=== PATIENT | male | born 1970 | race Caucasian/White ===

== ENCOUNTER 2021-01-17 16:49 | Emergency (ER) | payer MEDICAID, OTHER, SELFPAY ==
[2021-01-17 16:52] VITALS: BP 147/92; PULSE 97; RESP 18; TEMP 37; O2SAT 98; BMI 28.3
[2021-01-17 19:00] VITALS: BP 153/97; PULSE 85; RESP 16; TEMP 36.6; O2SAT 100
--- NOTE | 2021-01-17 19:15 | ED.FEVER ---
HPI - Fever General Chief Complaint: Fever Stated Complaint: flu like Time Seen by Provider: 01/17/21 20:31 Source: patient Mode of arrival: ambulatory Limitations: no limitations History of Present Illness HPI Narrative: 50-year-old male presents with upper respiratory symptoms consistent with COVID-19. Has been feeling ill for the past 4 days, and did receive his COVID vaccine. He does not report any other concerning symptoms. He is requesting COVID-19 testing. MD elicited complaint: fever Onset (ago): day(s) (4) Context: sick contacts Relieving factors: nothing Associated symptoms: headache, rhinorrhea, nasal congestion, sore throat and cough Treatments prior to arrival fever: acetaminophen Related Data Allergies Allergy/AdvReac Type Severity Reaction Status Date / Time No Known Allergies Allergy Unverified 03/05/20 19:36 [No Known Allergies*] Review of Systems Review of Systems: Constitutional: Positive Fever, positive Chills ENT/Mouth: No Ear Pain, No Hoarseness, positive sore throat Eyes: No Eye Pain, No Swelling, No Redness, No Foreign Body Cardiovascular: No Chest Pain, No SOB Respiratory: No Cough, No Dyspnea Gastrointestinal: No Nausea, No Vomiting, No Diarrhea, No abdominal Pain Genitourinary: No Dysuria, No Hematuria Musculoskeletal: No joint pain, positive Myalgias, No Joint Swelling Skin: No Skin lacerations, No rash Neuro: No Weakness, No Numbness, No Paresthesias, No Loss of Consciousness, No Dizziness, No Headache Psych: No Anxiety/Panic, No Depression Heme/Lymph: no easy bruising, no Lymphadenopathy Endocrine: No Polyuria, No Polydipsia Yes all other systems are reviewed and are negative [facility] Past Medical History Attestation statement: The following information was validated with the patient. Source: old records reviewed Medical History (Updated 01/17/21 @ 21:51 by Rosemarie Rodríguez NP) No acute medical problems Surgical History No history of previous surgery Social History Social History Advance Directives: No Advance Directives Information Provided: No Physical Exam Vital Signs: Vital Signs: Last Vital Signs Temp 97.8 F 01/17/21 19:00 Pulse 85 01/17/21 19:00 Resp 16 01/17/21 19:00 BP 153/97 H 01/17/21 19:00 Pulse Ox 100 01/17/21 19:00 Body Mass Index 28.3 Appearance: Alert. Oriented X3. No acute distress. Eyes: Pupils equal, round and reactive to light. ENT: Pharynx normal. Moist mucous membranes Neck: Normal inspection. Neck supple. CVS: Normal heart rate and rhythm. Pulses normal. Respiratory: No respiratory distress. Breath sounds normal. Abdomen: Soft and nontender. Skin: Skin warm and dry. Normal skin color. Normal skin turgor. Extremities: No lower extremity edema. Neuro: No motor deficit. No sensory deficit. Cranial nerves 2-12 intact. No focal neural deficits. Course Course Course Narrative: 50-year-old male presents with upper respiratory symptoms. Requesting COVID-19 testing. Patient is afebrile, appears nontoxic, even unlabored respirations, speaking complete sentences. Lung sounds clear to auscultation all lobes. COVID test is negative. Plan of care is to discharge home with supportive measures. MDM - Fever Differential Diagnosis Differential diagnosis: Likely viral infection and influenza Medical Records Attestation: I reviewed the patient's medical records. Lab Data Attestation: I reviewed the patient's lab results. Labs: Lab Results 01/17/21 Range/Units 19:31 Coronavirus (PCR) NEGATIVE (Negative) Influenza Type A (PCR) NEGATIVE (Negative) Influenza Type B (PCR) NEGATIVE (Negative) RSV RNA Qual (PCR) NEGATIVE (Negative) Discharge Plan Discharge Clinical Impression: Viral infection Patient Disposition: Home, Self-Care Instructions: Viral Syndrome (ED) Additional Instructions: You were evaluated for upper respiratory viral symptoms. Your COVID test, influenza and RSV test are negative. Please continue to use supportive measures. You can use Mucinex, Tylenol and Motrin as needed to help with your symptoms. Drink plenty of fluids. Follow-up with primary care provider in the next few days. Thank you for choosing this emergency department for evaluation. Please follow-up with primary care physician as needed. Return to the emergency department for any new, concerning, or worsening symptoms. Stand Alone Forms: Work/School Release Interventions: ED Discharge Assessment Last Done: 01/17/21 22:07 Discharge Date/Time: 01/17/21 22:17
[2021-01-17 20:44] LABS: Influenza A PCR NEGATIVE (Negative); Influenza B PCR NEGATIVE (Negative); Resp Syncy Virus RNA Qual PCR NEGATIVE (Negative); SARS COV2 PCR INHOUSE NEGATIVE (Negative)
== END 2021-01-17 22:17 | disposition home or self-care (01) ==
PROVIDERS: Nurse Practitioner Family; Emergency Provider Internal Medicine; PCP Internal Medicine
DX: B34.9 Viral infection, unspecified (principal); R50.9 Fever, unspecified; Z20.822 Contact with and (suspected) exposure to COVID-19
CPT/HCPCS: 0241U; 36415; 99283

== ENCOUNTER 2021-07-16 05:46 | Emergency (ER) | payer MEDICAID, OTHER, SELFPAY ==
--- NOTE | ~2021-07-16 | CT_ITS ---
EXAMINATION: CT ABDOMEN AND PELVIS WITHOUT CONTRAST CLINICAL INFORMATION: Left flank pain, history of renal stone COMPARISON: CT abdomen and pelvis 07/11/2018 TECHNIQUE: Multidetector volumetric imaging was performed from the superior aspect of the liver through the pubic symphysis. Sagittal and coronal reformatted images were obtained on the technologist's workstation. This CT examination was performed using dose optimization techniques as appropriate, variously including the following: *Automated exposure control *Adjustment of mA and/or kV according to patient size (this includes techniques or standardized protocols for targeted exams where dose is matched to indication/reason for exam; i.e. extremities or head) *Use of iterative reconstruction technique DLP: 495 mGy-cm FINDINGS: LUNG BASES: The visualized lung bases are unremarkable. LIVER, GALLBLADDER, AND BILIARY TREE: The liver is normal in size, shape, and attenuation. No focal hepatic lesion or biliary ductal dilatation is present. The gallbladder is unremarkable with no evidence of radiopaque gallstones, gallbladder wall thickening, or obvious pericholecystic inflammatory changes. PANCREAS: Unremarkable. SPLEEN: Unremarkable. ADRENAL GLANDS: Unremarkable. KIDNEYS AND URETERS: There is mild left-sided hydroureteronephrosis with an obstructing 4.5 cm calculus in the distal ureter (6, 57/83 and 3, 76/94). Moderate left-sided perinephric stranding. Punctate nonobstructing calculus in the lower pole of the right kidney. BLADDER: Partially decompressed bladder. No bladder calculi. GASTROINTESTINAL TRACT: The small and large bowel are unremarkable. The appendix is unremarkable. ABDOMINAL WALL: Left fat-containing inguinal hernia. LYMPH NODES: Normal. VASCULAR: Unremarkable. PELVIC VISCERA: The prostate and seminal vesicles are unremarkable. OSSEOUS STRUCTURES: Mild degenerative disc disease in the lumbar spine. CT/CT abdomen pelvis wo con IMPRESSION: 4.5 mm obstructing calculus in the distal left ureter. Mild left-sided hydroureteronephrosis with moderate perinephric stranding. Additional punctate nonobstructing calculus in the lower pole the right kidney. Fleischner guidelines were followed.
[2021-07-16 06:03] VITALS: BP 173/108; PULSE 66; RESP 16; TEMP 37.2; O2SAT 100; BMI 27.3
--- NOTE | 2021-07-16 06:36 | ED_ITS ---
HPI - Male Genitourinary General Chief complaint: Urogenital-Male Stated complaint: lower back pain; kidney stones? Time Seen by Provider: 07/16/21 06:10 Source: patient Mode of arrival: ambulatory Limitations: no limitations History of Present Illness HPI Narrative: left flank pain for past few days, he feels like he has a kidney stone. He last had a stone a few years ago. He has nausea and vomiting. Denies fever or chills. Denies dysuria, frequency or hematuria. Onset (ago): day(s) Duration: constant Related Data Previous Rx's Medication Instructions Recorded naproxen 500 mg tablet (Naprosyn) 500 mg PO BID #20 tab 07/16/21 oxycodone-acetaminophen 5 mg-325 1 tab PO Q8H PRN #10 tab 07/16/21 mg tablet (Percocet) prednisone 20 mg tablet 20 mg PO DAILY #5 tab 07/16/21 tamsulosin 0.4 mg capsule (Flomax) 0.4 mg PO BEDTIME #10 cap 07/16/21 Allergies Allergy/AdvReac Type Severity Reaction Status Date / Time No Known Allergies Allergy Unverified 03/05/20 19:36 [No Known Allergies*] Review of Systems Verdana 4l Constitutional: Verdana 4d Constitutional: Verdana 4d Verdana 4d Reports no additional constitutional complaints Verdana 4l Eyes: Verdana 4d Verdana 4d Eyes: Verdana 4d Reports no additional eye complaints Verdana 4l ENT: Verdana 4d Denies dizziness Verdana 4l Cardiovascular: Verdana 4d Cardiovascular: Verdana 4d Verdana 4d Reports no additional cardiovascular complaints Verdana 4l Respiratory: Verdana 4d Verdana 4d Respiratory: Verdana 4d Reports as per HPI Verdana 4l Gastrointestinal: Verdana 4d Gastrointestinal: Verdana 4d Verdana 4d Reports no additional gastrointestinal complaints Verdana 4l Musculoskeletal: Verdana 4d Musculoskeletal: Verdana 4d Verdana 4d Reports no additional musculoskeletal complaints Verdana 4l Integumentary/Breasts: Verdana 4d Skin/Breast: Verdana 4d Verdana 4d Denies rash Verdana 4l Neurologic: Verdana 4d Reports system reviewed and no additional complaints, except as documented, Denies dizziness and Denies Sensory deficit (Neuro) Verdana 4l Psychiatric: Verdana 4d Verdana 4d Psychiatric: Verdana 4d Denies anxiety [facility] Past Medical History Medical History No acute medical problems Surgical History No history of previous surgery Social History Social History Advance Directives: No Advance Directives Information Provided: No Physical Exam Verdana 4l Vital Signs: Verdana 4d Verdana 4d Vital Signs: Verdana 4d Verdana 4Bd Last Vital Signs Verdana 4d Leather Stretcher New 4d Leather Stretcher New 4d Temp 97.6 F 07/16/21 08:16 Leather Stretcher New 4d Pulse 63 07/16/21 08:16 Leather Stretcher New 4d Resp 14 07/16/21 08:16 BP 150/94 H 07/16/21 08:16 Pulse Ox 99 07/16/21 08:16 BMI result Body Mass Index 27.3 Const: General: healthy appearing Nutritional Appearance: average body habitus Orientation/consciousness: oriented to person and patient oriented x3 Limitations: no limitations HENMT: Head: Yes normal to inspection Ears: external ears normal General nose exam: Normal external nose present Mouth: Normal oral and palatal mucosa present and oropharynx normal Throat: Yes posterior oropharynx normal Eyes: General: appearance normal, both eyes and all related structures Neck: Other: supple Neck: Yes normal visual inspection Chest: Chest palpation & inspection: normal inspection of the chest Resp: Auscultation: clear to auscultation bilaterally Cardio: Jugular venous distension: no JVD Rate: regular rate Rhythm: regular rhythm Heart sounds: S1 normal heart sound present and S2 normal heart sound present GI: Inspection: Yes normal to inspection Palpation (GI): Soft to palpation, nontender and No hepatosplenomegaly present Auscultation: normal bowel sounds : Other: Left CVAT pain with percussion. Skin: General skin exam: no rashes or lesions noted Neuro: General: oriented to person and patient oriented x3 Cranial nerves: Yes CN's II-XII intact bilaterally Motor exam (neuro): 5/5 motor strength present throughout Sensory Exam: No Sensory deficit (Neuro) Extrem: General: Yes normal to inspection Psych: Appearance: grossly normal Course Reevaluation(s) Reevaluation #1: Patient still having pain but feels slightly better. The stone is at the UVJ and about to pass Time: 10:02 [facility] - Male Genitourinary Lab Data Result diagrams: 07/16/21 07:08 07/16/21 07:08 Labs: Lab Results 07/16/21 07/16/21 07/16/21 Range/Units 07:08 07:08 07:09 WBC 5.7 (4.8-10.8) X10*3/uL RBC 5.15 (4.60-5.80) X10*6/uL Hgb 15.1 (14.0-18.0) g/dl Hct 43.8 (42.0-52.0) % MCV 85.0 (80.0-98.0) fL MCH 29.3 (27.0-33.0) pg MCHC 34.5 (31.0-36.0) g/dl RDW 12.0 (11.0-16.0) % Plt Count 196 (160-400) X10*3/uL MPV 10.3 (9.4-12.4) fL Immature Gran % (Auto) 0.3 (0.0-0.4) % Neut % (Auto) 52.7 (45-73) % Lymph % (Auto) 35.7 (20-40) % [place] % (Auto) 8.7 (2-11) % Eos % (Auto) 1.9 (0-4) % Baso % (Auto) 0.7 (0-2) % Lymph # (Auto) 2.0 (1.2-4.9) X10*3/uL [place] # (Auto) 0.5 (0.1-1.2) X10*3/uL Eos # (Auto) 0.1 (0.0-0.4) X10*3/uL Baso # (Auto) 0.0 (0.0-0.2) X10*3/uL Abs Immat Gran (auto) 0.02 (0.00-0.03) X10*3/uL Absolute Neuts (auto) 3.0 (2.0-8.3) x10*3/uL Absolute Nucleated RBC 0.000 (0.0-0.012) X10*3/uL Nucleated RBC % (auto) 0.0 (0.0-0.2) /100WBC Sodium 142 (135-145) mmol/L Potassium 4.2 (3.3-5.1) mmol/L Chloride 106 (96-108) mmol/L Carbon Dioxide 28 (22-29) mmol/L Anion Gap 12 (12-20) BUN 19 H (9-16) mg/dL Creatinine 1.21 (0.5-1.4) mg/dL Estim Creat Clear Calc 71.4 Estimated GFR > 60 Random Glucose 106 (60-115) mg/dL Calcium 9.8 (8.4-10.2) mg/dL Magnesium 2.2 (1.6-2.6) mg/dL Total Bilirubin 0.6 (0.0-1.0) mg/dL Direct Bilirubin 0.2 (0.0-0.5) mg/dL AST 24 (5-37) U/L ALT 35 (0-40) U/L Alkaline Phosphatase 58 (39-117) U/L Total Protein 7.8 (6.5-8.0) g/dL Albumin 4.7 (3.5-5.0) g/dL Urine Color Urine Appearance Urine pH (5.0-8.0) Ur Specific [place] (1.005-1.025) Urine Protein (NEG-TRACE) MG/DL Urine Glucose (UA) (NEG) MG/DL Urine Ketones (NEG) MG/DL Urine Blood (NEG) Urine Nitrite (NEG) Ur Leukocyte Esterase (NEG) Urine RBC (0) /HPF Urine WBC (0-4) /HPF Ur Squamous Epith Cells /LPF Uric Acid Crystals /LPF Urine Bacteria /LPF Urine Mucus /LPF COVID-19 (AV) Negative (Negative) COVID-19 Clin Com See Note 07/16/21 Range/Units 07:17 WBC (4.8-10.8) X10*3/uL RBC (4.60-5.80) X10*6/uL Hgb (14.0-18.0) g/dl Hct (42.0-52.0) % MCV (80.0-98.0) fL MCH (27.0-33.0) pg MCHC (31.0-36.0) g/dl RDW (11.0-16.0) % Plt Count (160-400) X10*3/uL MPV (9.4-12.4) fL Immature Gran % (Auto) (0.0-0.4) % Neut % (Auto) (45-73) % Lymph % (Auto) (20-40) % [place] % (Auto) (2-11) % Eos % (Auto) (0-4) % Baso % (Auto) (0-2) % Lymph # (Auto) (1.2-4.9) X10*3/uL [place] # (Auto) (0.1-1.2) X10*3/uL Eos # (Auto) (0.0-0.4) X10*3/uL Baso # (Auto) (0.0-0.2) X10*3/uL Abs Immat Gran (auto) (0.00-0.03) X10*3/uL Absolute Neuts (auto) (2.0-8.3) x10*3/uL Absolute Nucleated RBC (0.0-0.012) X10*3/uL Nucleated RBC % (auto) (0.0-0.2) /100WBC Sodium (135-145) mmol/L Potassium (3.3-5.1) mmol/L Chloride (96-108) mmol/L Carbon Dioxide (22-29) mmol/L Anion Gap (12-20) BUN (9-16) mg/dL Creatinine (0.5-1.4) mg/dL Estim Creat Clear Calc Estimated GFR Random Glucose (60-115) mg/dL Calcium (8.4-10.2) mg/dL Magnesium (1.6-2.6) mg/dL Total Bilirubin (0.0-1.0) mg/dL Direct Bilirubin (0.0-0.5) mg/dL AST (5-37) U/L ALT (0-40) U/L Alkaline Phosphatase (39-117) U/L Total Protein (6.5-8.0) g/dL Albumin (3.5-5.0) g/dL Urine Color YELLOW Urine Appearance HAZY Urine pH 5.5 (5.0-8.0) Ur Specific [place] >= 1.030 H (1.005-1.025) Urine Protein TRACE (NEG-TRACE) MG/DL Urine Glucose (UA) NEG (NEG) MG/DL Urine Ketones NEG (NEG) MG/DL Urine Blood 1+ H (NEG) Urine Nitrite NEG (NEG) Ur Leukocyte Esterase NEG (NEG) Urine RBC 0-2 (0) /HPF Urine WBC 0-2 (0-4) /HPF Ur Squamous Epith Cells NONE /LPF Uric Acid Crystals 1+ /LPF Urine Bacteria NONE /LPF Urine Mucus 1+ /LPF COVID-19 (AV) (Negative) COVID-19 Clin Com Imaging Data CT scan - abdomen: Radiologist's impression: IMPRESSION: 4.5 mm obstructing calculus in the distal left ureter. Mild left-sided hydroureteronephrosis with moderate perinephric stranding. Additional punctate nonobstructing calculus in the lower pole the right kidney.? ? Fleischner guidelines were followed. Discharge Plan Discharge Clinical Impression: Kidney stone on left side Patient Disposition: Home, Self-Care Additional Instructions: strain all urine for stones Prescriptions: New naproxen [Naprosyn] 500 mg tablet 500 mg PO BID Qty: 20 0RF tamsulosin [Flomax] 0.4 mg capsule 0.4 mg PO BEDTIME Qty: 10 0RF prednisone 20 mg tablet 20 mg PO DAILY Qty: 5 0RF oxycodone-acetaminophen [Percocet] 5-325 mg tablet 1 tab PO Q8H PRN (Reason: pain) Qty: 10 0RF Referrals: Marco Zarate MD [Physician] - 10 days
[2021-07-16 07:14] LABS: MANUAL DIFF FLAG NO
[2021-07-16 07:16] LABS: Basophils Percent Auto 0.7 % (0-2); Eosinophils Absolute Auto 0.1 X10*3/uL (0.0-0.4); Eosinophils Percent Auto 1.9 % (0-4); Hematocrit 43.8 % (42.0-52.0); Hemoglobin 15.1 g/dl (14.0-18.0); Imm Gran Abs Auto 0.02 X10*3/uL (0.00-0.03); Imm Gran Pct Auto 0.3 % (0.0-0.4); Lymphocytes Percent Auto 35.7 % (20-40); Mean Corpuscular HGB Conc 34.5 g/dl (31.0-36.0); Mean Corpuscular Hemoglobin 29.3 pg (27.0-33.0); Mean Platelet Volume 10.3 fL (9.4-12.4); Monocytes Absolute Auto 0.5 X10*3/uL (0.1-1.2); Monocytes Percent Auto 8.7 % (2-11); Neutrophils Percent Auto 52.7 % (45-73); Platelet Count 196 X10*3/uL (160-400); Red Blood Count 5.15 X10*6/uL (4.60-5.80); White Blood Count 5.7 X10*3/uL (4.8-10.8)
[2021-07-16 07:22] LABS: Appearance Urine HAZY; Color Urine YELLOW; Glucose Urine UA NEG (NEG); Leukocyte Esterase Urine NEG (NEG); Nitrite Urine NEG (NEG); PH 5.5 (5.0-8.0); Specific Gravity - Urine >= 1.030 (1.005-1.025); UACC Culture Trigger NO; Urine Blood 1+ (NEG); Urine Ketones NEG (NEG); Urine Protein TRACE MG/DL (NEG-TRACE)
[2021-07-16] MEDS: Ketorolac Tromethamine 30 MG/ML VIAL IVPUSH (07:24)
[2021-07-16] MEDS: ondansetron HCL 4 MG/2 ML VIAL IVPUSH (07:25)
[2021-07-16] MEDS: 0.9 % Sodium Chloride 1,000 ML 999 ML IVCONT ×2 (07:25→07:26)
[2021-07-16 07:30] LABS: Alanine Aminotransferase 35 U/L (0-40); Albumin Level 4.7 g/dL (3.5-5.0); Alkaline Phosphatase 58 U/L (39-117); Anion Gap 12 (12-20); Aspartate Amino Transferase 24 U/L (5-37); Bilirubin Direct 0.2 mg/dL (0.0-0.5); Bilirubin Total 0.6 mg/dL (0.0-1.0); Blood Urea Nitrogen 19 mg/dL (9-16); Calcium 9.8 mg/dL (8.4-10.2); Carbon Dioxide 28 mmol/L (22-29); Chloride 106 mmol/L (96-108); Creatinine Clr Calc Pharmacy 71.4; Estimated Glomerular Filt Rate > 60; Glucose Random 106 mg/dL (60-115); Magnesium 2.2 mg/dL (1.6-2.6); Potassium 4.2 mmol/L (3.3-5.1); Sodium 142 mmol/L (135-145); Total Protein 7.8 g/dL (6.5-8.0)
[2021-07-16 07:30] LABS: COVID-19 Test Negative (Negative)
[2021-07-16 07:41] LABS: Mucus Urine 1+ /LPF; RBC Urine 0-2 /HPF (0); WBC Urine 0-2 /HPF (0-4)
[2021-07-16 07:42] LABS: Uric Acid Crystals Urine 1+ /LPF
[2021-07-16 08:16] VITALS: BP 150/94; PULSE 63; RESP 14; TEMP 36.4; O2SAT 99
[2021-07-16] MEDS: Morphine Sulfate 4 MG/ML CARTRIDGE IVPUSH (10:14)
[2021-07-16 10:31] VITALS: BP 131/85; PULSE 65; RESP 16; O2SAT 95
== END 2021-07-16 10:32 | disposition home or self-care (01) ==
PROVIDERS: Emergency Medicine; Emergency Provider Emergency Medicine; PCP Internal Medicine
DX: N20.0 Calculus of kidney (principal); M54.50 Low back pain, unspecified; Z20.822 Contact with and (suspected) exposure to COVID-19; Z79.899 Other long term (current) drug therapy
CPT/HCPCS: 36415; 74176; 80048; 80076; 81001; 83735; 85025; 87635; 96361; 96374; 96375; 99284; J1885; J2270; J2405

== ENCOUNTER 2021-07-17 15:56 | Emergency (ER) | payer MEDICAID, OTHER, SELFPAY ==
[2021-07-17 16:05] VITALS: BP 173/100; PULSE 93; RESP 20; TEMP 36.9; O2SAT 97; BMI 30.1
[2021-07-17] MEDS: Ketorolac Tromethamine 30 MG/ML VIAL 15 MG IVPUSH (18:12)
[2021-07-17] MEDS: 0.9 % Sodium Chloride 1,000 ML 999 ML IV (18:12)
[2021-07-17 19:48] VITALS: BP 140/89; PULSE 70; RESP 16; TEMP 36.9; O2SAT 97
[2021-07-17] MEDS: Morphine Sulfate 4 MG/ML CARTRIDGE IVPUSH (19:49)
--- NOTE | 2021-07-17 20:01 | PC.NURSE ---
Pt aaox4, resting on stretcher in NAD breathing with ease on ra, VSS pt c/o L flank pain, medicated per AUG pt stretcher low locked position, call dos santos within reach. pt awaiting dispo
--- NOTE | 2021-07-17 20:07 | ED_ITS ---
HPI - General Adult General Chief complaint: Back Pain/Injury Stated complaint: kidney stone pain Time Seen by Provider: 07/17/21 17:21 Source: patient Mode of arrival: ambulatory Limitations: no limitations History of Present Illness HPI narrative: 50-year-old male who presents emergency department for evaluation of left flank pain that radiates to his abdomen. The patient was seen here yesterday in the emergency department and diagnosed with a 4.5 cm discharge ureteral stone with mild left hydronephrosis and moderate perinephric stranding . The patient was treated in the emergency department and states that his pain improved by the time he went home. States that he woke up this morning and then the pain returned. The patient was prescribed prednisone, naproxen, Flomax and oxycodone. He states however that the oxycodone was not available at the pharmacy. The patient states that his pain got progressively worse to the point where it was 10/10. At the time of presentation he states that is a constant ?strong pain ?located in his left flank area radiating to his left abdomen. The pain is 10/10. Patient had associated nausea but no vomiting. He denied frequency, urgency or dysuria. Related Data Previous Rx's Medication Instructions Recorded naproxen 500 mg tablet (Naprosyn) 500 mg PO BID #20 tab 07/16/21 oxycodone-acetaminophen 5 mg-325 1 tab PO Q8H PRN #10 tab 07/16/21 mg tablet (Percocet) prednisone 20 mg tablet 20 mg PO DAILY #5 tab 07/16/21 tamsulosin 0.4 mg capsule (Flomax) 0.4 mg PO BEDTIME #10 cap 07/16/21 morphine 15 mg immediate release 15 mg PO Q4-6H PRN #14 tab 07/17/21 tablet Allergies Allergy/AdvReac Type Severity Reaction Status Date / Time No Known Allergies Allergy Unverified 03/05/20 19:36 [No Known Allergies*] Review of Systems Verdana 4l Review of Systems: Yes all other systems are reviewed and Verdana 4d are negative [facility] Past Medical History [facility] Narrative: Past medical history: Kidney stones 2 years prior which he passed, kidney stones 6 years prior when he was in [place] which required urology intervention with stenting. Social history: He denies tobacco, alcohol and drug use. Medical History No acute medical problems Surgical History No history of previous surgery Social History Social History Advance Directives: No Advance Directives Information Provided: No Physical Exam Verdana 4l Vital Signs: Verdana 4d Verdana 4d Vital Signs: Verdana 4d Verdana 4Bd Last Vital Signs Verdana 4d Emergency Department Rn New 4d Emergency Department Rn New 4d Temp 98.5 F 07/17/21 19:48 Emergency Department Rn New 4d Pulse 70 07/17/21 19:48 Emergency Department Rn New 4d Resp 16 07/17/21 19:48 BP 140/89 H 07/17/21 19:48 Pulse Ox 97 07/17/21 19:48 BMI result Body Mass Index 30.1 Const: General: cooperative and no acute distress Orientation/consciousness: oriented to person and oriented to place Limitations: no limitations HENMT: Head: Yes normal to inspection, Yes normocephalic and Yes atraumatic Ears: external ears normal General nose exam: Normal external nose present Face and sinus: Yes normal facial exam Mouth: Normal oral and palatal mucosa present Throat: Yes posterior oropharynx normal Eyes: General: appearance normal, both eyes and all related structures Pupils: Equal, round and reactive pupils present Neck: Neck: Yes normal visual inspection, Yes no lymphadenopathy, Yes trachea midline and Yes supple Chest: Chest palpation & inspection: normal inspection of the chest and normal palpation of entire chest wall Resp: Effort & Inspection: normal respiratory effort and able to speak in complete sentences Auscultation: clear to auscultation bilaterally Cardio: Rate: regular rate Rhythm: regular rhythm Heart sounds: S1 normal heart sound present, S2 normal heart sound present and no murmurs GI: Inspection: Yes normal to inspection Palpation (GI): Soft to palpation, Tenderness to palpation present (GI) in the LUQ (Mild) and no guarding Auscultation: normal bowel sounds : General: Yes CVA tenderness on the left (Moderate) Back/Spine/Pelvis: Back: CVA tenderness Skin: General skin exam: no rashes or lesions noted Neuro: General: oriented to person and oriented to place Cranial nerves: Yes CN's II-XII intact bilaterally and Yes Equal, round and reactive pupils present Cognition (Neuro): normal cognition Motor exam (neuro): 5/5 motor strength present throughout Extrem: General: Yes normal to inspection Psych: Appearance: grossly normal Speech and movement: Normal speech and movement present Affect: normal affect Attitude: cooperative Thought process: Normal thought process present Thought content: Normal thought content present Course Course Course Narrative: 50-year-old male who presents emergency department for evaluation of left flank and left lower quadrant abdominal pain, he was seen here yesterday and diagnosed with a 4.5 mm left distal ureteral stone with mild hydronephrosis and moderate perinephric stranding. Patient was taking his pain medications at home without relief his pain. States he was not able to get his oxycodone filled. Here in the emergency department patient did have left flank tenderness and left lower quadrant tenderness. Vital signs were normal. Patient's presentation is consistent with renal colic secondary to his kidney stone. He was treated with normal saline IV x1 L, Toradol 15 mg IV and morphine 4 mg IV with improvement his pain. He was advised to continue taking his medications as prescribed yesterday and he was also given a prescription for morphine 15 mg pills, 1 pill every 4-6 hours as needed for pain. He was given printed and verbal instructions and discharged home. Discharge Plan Discharge Clinical Impression: Renal colic, Calculus of distal left ureter Patient Disposition: Home, Self-Care Instructions: Kidney Stones (ED), How to Strain Your Urine (ED) Additional Instructions: Continue taking prednisone 40 mg once a day Continue taking naproxen 500 mg twice a day as needed for pain. Take Tylenol (acetaminophen) 500 mg pills, 2 pills every 4-6 hours as needed for pain. For pain not relieved by naproxen or Tylenol take morphine 15 mg pills, 1 pill every 4 hours as needed for pain. Do not drive or work while taking this medication since they can cause sleepiness. Morphine is a narcotic medication that can be addicting. If you are concerned about addiction you can ask the pharmacist for less pills or do not get this prescription filled. Complete the course of Flomax (tamsulosin). This medication sometimes helps you pass a kidney stone faster. Continue to strain your urine. Follow-up with your the on-call urologist in 1-2 weeks Please return to the emergency department if your symptoms get worse or if you develop any symptoms that are concerning to you. Prescriptions: New morphine 15 mg tablet 15 mg PO Q4-6H PRN (Reason: pain) Qty: 14 0RF Rx Instructions: Patient may request partial fill No Action naproxen [Naprosyn] 500 mg tablet 500 mg PO BID Qty: 20 0RF tamsulosin [Flomax] 0.4 mg capsule 0.4 mg PO BEDTIME Qty: 10 0RF prednisone 20 mg tablet 20 mg PO DAILY Qty: 5 0RF oxycodone-acetaminophen [Percocet] 5-325 mg tablet 1 tab PO Q8H PRN (Reason: pain) Qty: 10 0RF
== END 2021-07-17 20:36 | disposition home or self-care (01) ==
PROVIDERS: Emergency Provider Emergency Medicine Emergency Medical Services; PCP Internal Medicine
DX: N13.2 Hydronephrosis with renal and ureteral calculous obstruction (principal); R10.9 Unspecified abdominal pain; Z87.442 Personal history of urinary calculi
CPT/HCPCS: 96361; 96374; 96375; 99284; J1885; J2270

== ENCOUNTER 2021-07-20 10:28 | Inpatient (IN) | payer MEDICAID, OTHER, SELFPAY ==
[2021-07-20] VITALS (12 sets, daily range): BP systolic 123–155; BP diastolic 63–103; PULSE 72–89; RESP 12–20; TEMP 36.2–37.1; O2SAT 95–100; BMI 33.2
--- NOTE | ~2021-07-20 | XR_ITS ---
EXAMINATION: XR ABDOMEN KUB CLINICAL INDICATION: Constipation COMPARISON: None TECHNIQUE: AP view of the abdomen. FINDINGS: Gas present in large and small bowel with most of the gas in the large bowel. Moderate volume of stool overall throughout the colon. Most of the stool is in the ascending colon. Small volume of stool in the pelvis. No abnormally dilated bowel loop. Nonobstructive bowel pattern. XR/XR KUB IMPRESSION: Moderate volume of stool in colon. Nonobstructive bowel pattern.
--- NOTE | ~2021-07-20 | US_ITS ---
EXAMINATION: US RETROPERITONEAL COMPLETE (RENAL) CLINICAL INFORMATION: Left-sided flank pain. COMPARISON: None TECHNIQUE: Real-time imaging of the kidneys and bladder. FINDINGS: RIGHT KIDNEY: 12.2 x 7.1 x 6.2 cm (SAG x AP x TRV). The kidney is normal in size, contour, and echogenicity. Renal cortical thickness is normal. There is an echogenic stone in the upper pole measuring 0.5 cm and 0.5 x 0.5 cm in the midpole. There is no caliectasis or hydronephrosis. LEFT KIDNEY: 14.8 x 6.6 x 6.9 cm (SAG x AP x TRV). The kidney is normal in size, contour, and echogenicity. Renal cortical thickness is normal. No calculi or focal parenchymal lesions. There is mild pelvic fullness. BLADDER: Well distended and normal. Bilateral ureteral jets are demonstrated. Prevoid bladder volume is 144 mL. Postvoid bladder not obtained. US/US retroperitoneal comp IMPRESSION: Nonobstructive echogenic calculi upper and midpole right kidney. There is mild pelvic fullness in the left kidney. Bilateral ureteral jets are seen in the bladder. Minimal echogenic debris in dependent bladder.
--- NOTE | ~2021-07-20 | FL_ITS ---
EXAMINATION: XR FLUOROSCOPY WITH IMAGES CLINICAL INFORMATION: Urethroscopy. Left-sided flank pain. Constipation. History of renal stone. COMPARISON: None. TECHNIQUE: Fluoroscopy performed by Dr. Elliot Lara Fluoroscopy time: 40.7 seconds Dose: 14.02 mGycm2 Images: 1 FINDINGS: There is contrast opacifying the right kidney pelvis with a guidewire within the upper pole calyx. No additional images are available. FL/FL guidance in OR IMPRESSION: Fluoroscopy guidance was provided to Elliot Lara during ureteroscopy.
[2021-07-20 11:44] LABS: MANUAL DIFF FLAG NO
[2021-07-20 11:45] LABS: Appearance Urine CLEAR; Color Urine YELLOW; Glucose Urine UA NEG (NEG); Leukocyte Esterase Urine NEG (NEG); Nitrite Urine NEG (NEG); PH 5.5 (5.0-8.0); Specific Gravity - Urine >= 1.030 (1.005-1.025); UACC Culture Trigger NO; Urine Blood 1+ (NEG); Urine Ketones NEG (NEG); Urine Protein TRACE MG/DL (NEG-TRACE)
[2021-07-20 11:47] LABS: Basophils Percent Auto 0.3 % (0-2); Eosinophils Percent Auto 0.3 % (0-4); Hematocrit 42.5 % (42.0-52.0); Hemoglobin 14.7 g/dl (14.0-18.0); Imm Gran Abs Auto 0.05 X10*3/uL (0.00-0.03); Imm Gran Pct Auto 0.4 % (0.0-0.4); Lymphocytes Absolute Auto 1.3 X10*3/uL (1.2-4.9); Lymphocytes Percent Auto 11.1 % (20-40); Mean Corpuscular HGB Conc 34.6 g/dl (31.0-36.0); Mean Corpuscular Hemoglobin 29.3 pg (27.0-33.0); Mean Corpuscular Volume 84.7 fL (80.0-98.0); Mean Platelet Volume 10.1 fL (9.4-12.4); Monocytes Absolute Auto 1.1 X10*3/uL (0.1-1.2); Monocytes Percent Auto 9.6 % (2-11); Neutrophils Absolute Auto 9.3 x10*3/uL (2.0-8.3); Neutrophils Percent Auto 78.3 % (45-73); Platelet Count 210 X10*3/uL (160-400); Red Blood Count 5.02 X10*6/uL (4.60-5.80); Red Cell Distribution Width 11.9 % (11.0-16.0); White Blood Count 11.8 X10*3/uL (4.8-10.8)
[2021-07-20 12:05] LABS: Alanine Aminotransferase 43 U/L (0-40); Albumin Level 4.5 g/dL (3.5-5.0); Alkaline Phosphatase 66 U/L (39-117); Anion Gap 12 (12-20); Aspartate Amino Transferase 26 U/L (5-37); Bilirubin Total 0.7 mg/dL (0.0-1.0); Blood Urea Nitrogen 31 mg/dL (9-16); Carbon Dioxide 27 mmol/L (22-29); Chloride 104 mmol/L (96-108); Creatinine Clr Calc Pharmacy 47.8; Estimated Glomerular Filt Rate 40; Glucose Random 105 mg/dL (60-115); Potassium 4.2 mmol/L (3.3-5.1); Sodium 139 mmol/L (135-145); Total Protein 7.7 g/dL (6.5-8.0)
[2021-07-20 12:10] LABS: RBC Urine 0-2 /HPF (0); Uric Acid Crystals Urine 3+ /LPF; WBC Urine 0 /HPF (0-4)
--- NOTE | 2021-07-20 13:56 | ED_ITS ---
HPI - Abdominal Pain General Chief Complaint: Abdominal Pain Stated Complaint: ABD PAIN Time Seen by Provider: 07/20/21 13:51 Source: patient Mode of arrival: ambulatory Limitations: no limitations History of Present Illness HPI narrative: dx with L sided distal obstructing 4.5mm stone on 07/16 - seen again for pain n/v on 07/17 sent home with oxycodone, prednisone, flomax, morphine comes back today with c/o pain and n/v constipation but positive flatus- found to be in ARUN. Rox x 3 MD elicited complaint: flank pain Pertinent past history: kidney stones Onset (ago): day(s) (07/16) Pain Consistency: constant Location: diffuse and L flank Severity: severe Quality: stabbing and aching Radiation: none Migration to: periumbilical Exacerbating factors: movement Relieving factors: nothing Context: other (dx with L ureteral stone, taking narcotics cannot have BM at this time) Associated symptoms: nausea, vomiting and constipation Related Data Home Medications Medication Instructions Recorded Confirmed acetaminophen 500 mg tablet 500 mg PO Q6H PRN 07/20/21 07/20/21 naproxen 500 mg tablet (Naprosyn) 500 mg PO BID PRN 07/20/21 07/20/21 Previous Rx's Medication Instructions Recorded prednisone 20 mg tablet 20 mg PO DAILY #5 tab 07/16/21 tamsulosin 0.4 mg capsule (Flomax) 0.4 mg PO BEDTIME #10 cap 07/16/21 morphine 15 mg immediate release 15 mg PO Q4-6H PRN #14 tab 07/17/21 tablet Allergies Allergy/AdvReac Type Severity Reaction Status Date / Time No Known Allergies Allergy Verified 07/20/21 11:25 [No Known Allergies*] Review of Systems Review of Systems Constitutional : No Weight loss, No Fever, No Chills ENT/Mouth : No sore throat, No Rhinorrhea Eyes: No Swelling, No Redness Cardiovascular : No Chest Pain, No SOB, NoEdema Respiratory : No Cough, No Sputum, No Wheezing Gastrointestinal : Positive Nausea, Positive Vomiting, no Diarrhea, positive abdominal Pain, No Hematochezia, No Melena, pos constipation, pos flatus Genitourinary : No Dysuria, No Urinary Frequency, No Hematuria, No Urgency Musculoskeletal : No joint pain, No Myalgias, No Joint Swelling Skin : No Skin Lesions, No rash Neuro : No Weakness, No Numbness, No Dizziness, No Headache Psych : No Anxiety/Panic, No Depression Heme/Lymph: No Bruising, No Lymphadenopathy Endocrine : No Polyuria, No Polydipsia All other systems reviewed and are negative. Physical Exam Verdana 4l Vital Signs: Verdana 4d Verdana 4d Vital Signs: Verdana 4d Verdana 4Bd Last Vital Signs Verdana 4d Sap Bpc Architect New 4d Sap Bpc Architect New 4d Temp 97.5 F 07/20/21 19:20 Sap Bpc Architect New 4d Pulse 83 07/20/21 19:50 Sap Bpc Architect New 4d Resp 18 07/20/21 19:50 BP 137/81 07/20/21 19:50 Pulse Ox 95 07/20/21 19:50 BMI result Body Mass Index 33.2 Appearance: Alert. Oriented X3. anxious in pain mild acute distress. Eyes: Pupils equal, round and reactive to light. ENT: Pharynx mildly dry MM Neck: Normal inspection. Neck supple. CVS: Normal heart rate and rhythm. Pulses normal. Respiratory: No respiratory distress. Breath sounds normal. Abdomen: Soft and mild diffuse ttp some mild distention Skin: Skin warm and dry. Normal skin color. Normal skin turgor. Extremities: No lower extremity edema. No calf ttp Neuro: Oriented X 3. No motor deficit. No sensory deficit. Course Course Course Narrative: message sent to Urologist 204pm given ARUN and likely stone needs removal - 3rd visit - to be taken to OR by Dr. Zarate 430pm patient has been NPO all morning MDM - Abdominal Pain MDM Narrative Medical decision making narrative: 50 yo male hx of kidney stones, NPO since last night - dx with obstructing L distal ureter stone on 07/16 4.5mm - back here with pain n/v now with consti pation but + flatus since taking narcotics - at this time repeat labs from triage show ARUN - IVF x 2L IV dilaudid for pain, US to evaluate ureteral and KUB to evaluate bowels - suspect constipation from narcotics. Urology aware - will need procedure to extract stone. Lab Data Result diagrams: 07/20/21 11:37 07/20/21 11:37 Labs: Lab Results 07/20/21 07/20/21 07/20/21 Range/Units 11:37 11:37 11:38 WBC 11.8 H (4.8-10.8) X10*3/uL RBC 5.02 (4.60-5.80) X10*6/uL Hgb 14.7 (14.0-18.0) g/dl Hct 42.5 (42.0-52.0) % MCV 84.7 (80.0-98.0) fL MCH 29.3 (27.0-33.0) pg MCHC 34.6 (31.0-36.0) g/dl RDW 11.9 (11.0-16.0) % Plt Count 210 (160-400) X10*3/uL MPV 10.1 (9.4-12.4) fL Immature Gran % (Auto) 0.4 (0.0-0.4) % Neut % (Auto) 78.3 H (45-73) % Lymph % (Auto) 11.1 L (20-40) % [place] % (Auto) 9.6 (2-11) % Eos % (Auto) 0.3 (0-4) % Baso % (Auto) 0.3 (0-2) % Lymph # (Auto) 1.3 (1.2-4.9) X10*3/uL [place] # (Auto) 1.1 (0.1-1.2) X10*3/uL Eos # (Auto) 0.0 (0.0-0.4) X10*3/uL Baso # (Auto) 0.0 (0.0-0.2) X10*3/uL Abs Immat Gran (auto) 0.05 H (0.00-0.03) X10*3/uL Absolute Neuts (auto) 9.3 H (2.0-8.3) x10*3/uL Absolute Nucleated RBC 0.000 (0.0-0.012) X10*3/uL Nucleated RBC % (auto) 0.0 (0.0-0.2) /100WBC Sodium 139 (135-145) mmol/L Potassium 4.2 (3.3-5.1) mmol/L Chloride 104 (96-108) mmol/L Carbon Dioxide 27 (22-29) mmol/L Anion Gap 12 (12-20) BUN 31 H D (9-16) mg/dL Creatinine 1.80 H (0.5-1.4) mg/dL Estim Creat Clear Calc 47.8 Estimated GFR 40 Random Glucose 105 (60-115) mg/dL Calcium 10.0 (8.4-10.2) mg/dL Total Bilirubin 0.7 (0.0-1.0) mg/dL AST 26 (5-37) U/L ALT 43 H (0-40) U/L Alkaline Phosphatase 66 (39-117) U/L Total Protein 7.7 (6.5-8.0) g/dL Albumin 4.5 (3.5-5.0) g/dL Urine Color YELLOW Urine Appearance CLEAR Urine pH 5.5 (5.0-8.0) Ur Specific [place] >= 1.030 H (1.005-1.025) Urine Protein TRACE (NEG-TRACE) MG/DL Urine Glucose (UA) NEG (NEG) MG/DL Urine Ketones NEG (NEG) MG/DL Urine Blood 1+ H (NEG) Urine Nitrite NEG (NEG) Ur Leukocyte Esterase NEG (NEG) Urine RBC 0-2 (0) /HPF Urine WBC 0 (0-4) /HPF Ur Squamous Epith Cells NONE /LPF Uric Acid Crystals 3+ /LPF Urine Bacteria NONE /LPF COVID-19 (AV) (Negative) COVID-19 Clin Com 07/20/21 Range/Units 14:20 WBC (4.8-10.8) X10*3/uL RBC (4.60-5.80) X10*6/uL Hgb (14.0-18.0) g/dl Hct (42.0-52.0) % MCV (80.0-98.0) fL MCH (27.0-33.0) pg MCHC (31.0-36.0) g/dl RDW (11.0-16.0) % Plt Count (160-400) X10*3/uL MPV (9.4-12.4) fL Immature Gran % (Auto) (0.0-0.4) % Neut % (Auto) (45-73) % Lymph % (Auto) (20-40) % [place] % (Auto) (2-11) % Eos % (Auto) (0-4) % Baso % (Auto) (0-2) % Lymph # (Auto) (1.2-4.9) X10*3/uL [place] # (Auto) (0.1-1.2) X10*3/uL Eos # (Auto) (0.0-0.4) X10*3/uL Baso # (Auto) (0.0-0.2) X10*3/uL Abs Immat Gran (auto) (0.00-0.03) X10*3/uL Absolute Neuts (auto) (2.0-8.3) x10*3/uL Absolute Nucleated RBC (0.0-0.012) X10*3/uL Nucleated RBC % (auto) (0.0-0.2) /100WBC Sodium (135-145) mmol/L Potassium (3.3-5.1) mmol/L Chloride (96-108) mmol/L Carbon Dioxide (22-29) mmol/L Anion Gap (12-20) BUN (9-16) mg/dL Creatinine (0.5-1.4) mg/dL Estim Creat Clear Calc Estimated GFR Random Glucose (60-115) mg/dL Calcium (8.4-10.2) mg/dL Total Bilirubin (0.0-1.0) mg/dL AST (5-37) U/L ALT (0-40) U/L Alkaline Phosphatase (39-117) U/L Total Protein (6.5-8.0) g/dL Albumin (3.5-5.0) g/dL Urine Color Urine Appearance Urine pH (5.0-8.0) Ur Specific [place] (1.005-1.025) Urine Protein (NEG-TRACE) MG/DL Urine Glucose (UA) (NEG) MG/DL Urine Ketones (NEG) MG/DL Urine Blood (NEG) Urine Nitrite (NEG) Ur Leukocyte Esterase (NEG) Urine RBC (0) /HPF Urine WBC (0-4) /HPF Ur Squamous Epith Cells /LPF Uric Acid Crystals /LPF Urine Bacteria /LPF COVID-19 (AV) Negative (Negative) COVID-19 Clin Com See Note Critical Care Time Critical Care Time Critical Care Time: Yes Total Critical Care Time: 35 Attestation: medical consult, IVF x 2L, IV pain medications, admit to surgery I attest to this time spent taking care of the patient Discharge Plan Discharge Clinical Impression: Left ureteral stone, ARUN (acute kidney injury) Patient Disposition: Admitted As Inpatient Interventions: Admission Worksheet (ED) Last Done: 07/20/21 16:45 [facility] Past Medical History Medical History Kidney stones No acute medical problems Surgical History (Updated 07/20/21 @ 16:22 by Fay Franco RN) Hx of cystoscopy Social History Social History (Updated 07/20/21 @ 14:32 by Gabriella Connors DO) Patient Tobacco Use Status: Never used Tobacco Use of substances other than those prescribed or required for medical reasons: No Are you DNR?: No Advance Directives: No Advance Directives Information Provided: Yes
--- NOTE | 2021-07-20 14:13 | PHA.MEDREC ---
Pharmacy Consult ? Medication Reconciliation Pharmacy has completed the medication reconciliation. Patient reports morphine replace his percocet. Yelena Armstrong, SandraD
[2021-07-20] MEDS: HYDROmorphone HCl 1 MG/ML SYRINGE IVPUSH (14:14)
[2021-07-20] MEDS: ondansetron HCL 4 MG/2 ML VIAL IVPUSH ×2 (14:14→20:02)
[2021-07-20] MEDS: 0.9 % Sodium Chloride 1,000 ML 999 ML IVCONT (14:15)
[2021-07-20 14:52] LABS: COVID-19 Test Negative (Negative)
--- NOTE | 2021-07-20 17:57 | P.CNUR_ITS ---
History of Present Illness Consult details Consult date: 07/20/21 Narrative: 50-year-old male. Re-presented taken to emergency room with left-sided distal stone Third presentation Creatinine 1.8 up from 1.2 WBC 11.8 up from 5.[address] - 4 mm distal left ureteric stone with mild hydroureteronephrosis Given location of stone recommend intervention with ureteroscopy laser lithotripsy and stone removal Review of Systems Verdana 4l Constitutional: Verdana 4d Constitutional: Verdana 4d Verdana 4d Reports as per HPI and Reports no additional constitutional complaints Verdana 4l Cardiovascular: Verdana 4d Cardiovascular: Verdana 4d Verdana 4d Reports as per HPI and Reports no additional cardiovascular complaints Verdana 4l Respiratory: Verdana 4d Verdana 4d Respiratory: Verdana 4d Reports as per HPI and Reports no additional respiratory complaints Verdana 4l Gastrointestinal: Verdana 4d Gastrointestinal: Verdana 4d Verdana 4d Reports as per HPI and Reports no additional gastrointestinal complaints Verdana 4l Genitourinary: Verdana 4d Verdana 4d Genitourinary: Verdana 4d Reports as per HPI Verdana 4l Musculoskeletal: Verdana 4d Musculoskeletal: Verdana 4d Verdana 4d Reports no additional musculoskeletal complaints and Reports as per HPI Verdana 4l Neurologic: Verdana 4d Reports system reviewed and no additional complaints, except as documented and Reports as per HPI [facility] Past Medical History Medical History Kidney stones No acute medical problems Surgical History Surgical History (Updated 07/20/21 @ 16:22 by Fay Franco RN) Hx of cystoscopy Social History Social History (Updated 07/20/21 @ 14:32 by Gabriella Connors DO) Patient Tobacco Use Status: Never used Tobacco Use of substances other than those prescribed or required for medical reasons: No Are you DNR?: No Advance Directives: No Advance Directives Information Provided: Yes Meds Allergies Allergy/AdvReac Type Severity Reaction Status Date / Time No Known Allergies Allergy Verified 07/20/21 11:25 [No Known Allergies*] Home Medications Medication Instructions Recorded Confirmed Last Taken Type acetaminophen 500 500 mg PO Q6H 07/20/21 07/20/21 Unknown History mg tablet PRN naproxen 500 mg 500 mg PO BID 07/20/21 07/20/21 Unknown History tablet (Naprosyn) PRN Physical Exam Verdana 4l Vital Signs: Verdana 4d Verdana 4d Vital Signs: Verdana 4d Verdana 4Bd Last Vital Signs Verdana 4d Assistant Public Defender New 4d Assistant Public Defender New 4d Temp 98.7 F 07/20/21 16:06 Assistant Public Defender New 4d Pulse 81 07/20/21 16:06 Assistant Public Defender New 4d Resp 16 07/20/21 16:06 BP 154/103 H 07/20/21 16:06 Pulse Ox 99 07/20/21 16:06 BMI result Body Mass Index 33.2 Const: General: cooperative, healthy appearing, comfortable and no acute distress Orientation/consciousness: patient oriented x3 HENMT: Face and sinus: Yes normal facial exam Mouth: moist mucous membranes Neck: Neck: Yes normal visual inspection, Yes full ROM and Yes trachea midline Chest: Chest palpation & inspection: normal inspection of the chest Resp: Effort & Inspection: normal respiratory effort, able to speak in complete sentences and no respiratory distress GI: Inspection: Yes normal to inspection Back/Spine/Pelvis: Cervical Spine: normal cervical lordosis Thoracic/Lumbar Spine: thoracic and lumbar spine normal to inspection Skin: General skin exam: no rashes or lesions noted Neuro: General: patient oriented x3, tone normal and moves all extremities Extrem: General: Yes normal to inspection and Yes capillary refill normal Results Labs Result diagrams: 07/20/21 11:37 07/20/21 11:37 Labs: Abnormal lab results 07/20/21 07/20/21 07/20/21 Range/Units 11:37 11:37 11:38 WBC 11.8 H (4.8-10.8) X10*3/uL Neut % (Auto) 78.3 H (45-73) % Lymph % (Auto) 11.1 L (20-40) % Abs Immat Gran (auto) 0.05 H (0.00-0.03) X10*3/uL Absolute Neuts (auto) 9.3 H (2.0-8.3) x10*3/uL BUN 31 H D (9-16) mg/dL Creatinine 1.80 H (0.5-1.4) mg/dL ALT 43 H (0-40) U/L Ur Specific [place] >= 1.030 H (1.005-1.025) Urine Blood 1+ H (NEG) Short CBC 07/20/21 Range/Units 11:37 WBC 11.8 H (4.8-10.8) X10*3/uL Hgb 14.7 (14.0-18.0) g/dl Hct 42.5 (42.0-52.0) % Plt Count 210 (160-400) X10*3/uL BMP 07/20/21 11:37 Sodium 139 Potassium 4.2 Chloride 104 Carbon Dioxide 27 BUN 31 H D Creatinine 1.80 H Calcium 10.0 Liver Function 07/20/21 Range/Units 11:37 Total Bilirubin 0.7 (0.0-1.0) mg/dL AST 26 (5-37) U/L ALT 43 H (0-40) U/L Alkaline Phosphatase 66 (39-117) U/L Albumin 4.5 (3.5-5.0) g/dL Urine 07/20/21 Range/Units 11:38 Urine Color YELLOW Urine Appearance CLEAR Urine pH 5.5 (5.0-8.0) Ur Specific [place] >= 1.030 H (1.005-1.025) Urine Protein TRACE (NEG-TRACE) MG/DL Urine Glucose (UA) NEG (NEG) MG/DL All other labs normal. Assessment and Plan (1) Left ureteral stone: Status: Acute Plan Ureteroscopy We discussed the nature of the decision and reasonable alternatives for performing the above surgery. Interventions include chemical dissolution, ESWL, ureteroscopy with laser lithotripsy and stent placement, PCNL. Options such as medical therapy were discussed. The relative uncertainties and benefits related to each alternate procedure were adequately discussed. General surgical risks including, but not limited to, diamond n, bleeding, infection, myocardial infarction, pulmonary embolus, deep vein thrombosis and cerebrovascular accident which may result in further hospitalization were discussed. Full disclosure of the procedure as well as all major risks, benefits and complications were discussed including but not limited to damage to the urethra, bladder and kidney infection, damage to the ureter, stent migration or malposition, scarring to the renal pelvis, remnant stone fragments, subsequent stone passage with need for secondary procedures. The overall secondary procedure rate is approximately 10-15%. The success rate of the procedure was discussed. Success of the procedure in the short-term does not necessarily guarantee that long-term success will be maintained. Suitable follow up will need to be maintained. The patient showed understanding of discussion and wishes to proceed with - cystoscopy, retrograde, ureteroscopy, possible lithotripsy/stone basketing and stent on the left side Procedures Date of Service Date of Service: 07/20/21
--- NOTE | 2021-07-20 18:13 | HO.ANESPROP2 ---
[facility] Active Problems Active Problems: All Active Problems (Updated 07/20/21 @ 14:32 by Gabriella Connors DO) Left ureteral stone (Acute) ARUN (acute kidney injury) (Acute) Past Medical History Medical History Kidney stones No acute medical problems Family History Family history of problems with anesthesia: No Surgical History Surgical History (Updated 07/20/21 @ 16:22 by Fay Franco RN) Hx of cystoscopy History of Problems with Anesthesia: No Social History Social History (Updated 07/20/21 @ 14:32 by Gabriella Connors DO) Patient Tobacco Use Status: Never used Tobacco Use of substances other than those prescribed or required for medical reasons: No Are you DNR?: No Advance Directives: No Advance Directives Information Provided: Yes Meds Allergies Allergy/AdvReac Type Severity Reaction Status Date / Time No Known Allergies Allergy Verified 07/20/21 11:25 [No Known Allergies*] Home Medications Medication Instructions Recorded Confirmed Last Taken Type acetaminophen 500 mg tablet 500 mg PO Q6H PRN 07/20/21 07/20/21 Unknown History naproxen 500 mg tablet (Naprosyn) 500 mg PO BID PRN 07/20/21 07/20/21 Unknown History Exam Exam Date and Time: July 20, [id number] Height,Weight and Vital Signs: Height 5 ft 3 in Weight 85 kg Last Vital Signs Temp 98.7 F 07/20/21 16:06 Pulse 81 07/20/21 16:06 Resp 16 07/20/21 16:06 BP 154/103 H 07/20/21 16:06 Pulse Ox 99 07/20/21 16:06 Pertinent Lab Results Pertinent Lab Results: Laboratory Tests 07/20/21 07/20/21 07/20/21 11:37 11:37 11:38 WBC 11.8 H RBC 5.02 Hgb 14.7 Hct 42.5 MCV 84.7 MCH 29.3 MCHC 34.6 RDW 11.9 Plt Count 210 MPV 10.1 Immature Gran % (Auto) 0.4 Neut % (Auto) 78.3 H Lymph % (Auto) 11.1 L [place] % (Auto) 9.6 Eos % (Auto) 0.3 Baso % (Auto) 0.3 Lymph # (Auto) 1.3 [place] # (Auto) 1.1 Eos # (Auto) 0.0 Baso # (Auto) 0.0 Abs Immat Gran (auto) 0.05 H Absolute Neuts (auto) 9.3 H Absolute Nucleated RBC 0.000 Nucleated RBC % (auto) 0.0 Sodium 139 Potassium 4.2 Chloride 104 Carbon Dioxide 27 Anion Gap 12 BUN 31 H D Creatinine 1.80 H Estim Creat Clear Calc 47.8 Estimated GFR 40 Random Glucose 105 Calcium 10.0 Total Bilirubin 0.7 AST 26 ALT 43 H Alkaline Phosphatase 66 Total Protein 7.7 Albumin 4.5 Urine Color YELLOW Urine Appearance CLEAR Urine pH 5.5 Ur Specific [place] >= 1.030 H Urine Protein TRACE Urine Glucose (UA) NEG Urine Ketones NEG Urine Blood 1+ H Urine Nitrite NEG Ur Leukocyte Esterase NEG Urine RBC 0-2 Urine WBC 0 Ur Squamous Epith Cells NONE Uric Acid Crystals 3+ Urine Bacteria NONE COVID-19 (AV) COVID-Be Spotted Com 07/20/21 14:20 WBC RBC Hgb Hct MCV MCH MCHC RDW Plt Count MPV Immature Gran % (Auto) Neut % (Auto) Lymph % (Auto) [place] % (Auto) Eos % (Auto) Baso % (Auto) Lymph # (Auto) [place] # (Auto) Eos # (Auto) Baso # (Auto) Abs Immat Gran (auto) Absolute Neuts (auto) Absolute Nucleated RBC Nucleated RBC % (auto) Sodium Potassium Chloride Carbon Dioxide Anion Gap BUN Creatinine Estim Creat Clear Calc Estimated GFR Random Glucose Calcium Total Bilirubin AST ALT Alkaline Phosphatase Total Protein Albumin Urine Color Urine Appearance Urine pH Ur Specific [place] Urine Protein Urine Glucose (UA) Urine Ketones Urine Blood Urine Nitrite Ur Leukocyte Esterase Urine RBC Urine WBC Ur Squamous Epith Cells Uric Acid Crystals Urine Bacteria COVID-19 (AV) Negative COVID-19 Clin Com See Note Airway Mallampati Class: I TM Dist: >3cm Neck ROM: Full Loose/Missing/Broken Teeth: No Heart: RRR Lungs: CTA Assessment and Plan Assessment Anesthesia Assessment: Anesthesia Plan Discussed and Chart Reviewed Final Anesthetic Review Family History of Problems with Anesthesia: No History of Problems with Anesthesia: No NPO: No ASA Class: II Final Preanesthetic Review: No Changes in Pt Med Stat, Meds/Allgs Chart Reviewed, Consent Obtained/Reviewed and Anes Risks/Benef Reviewed Patient Risk: Low Procedure Risk: Low Anesthetic Plan Anesthetic Plan: GA Disposition: Standard PACU
[2021-07-20] MEDS: levoFLOXacin/D5W 500 MG/100 ML PIGGYBACK 100 MG IV (18:46)
--- NOTE | 2021-07-20 19:08 | W.PM.OPN ---
Operative Note Operative Note Date of Service: 07/20/21 Narrative: PreOperative Diagnosis: distal left ureteric stone with left hydroureteronephrosis Post Operative Diagnosis: distal left ureteric stone with left hydroureteronephrosis Procedure: - cystoscopy, left retrograde - left dilatation of ureteric orifice under fluoroscopy - left ureteroscopy, laser lithotripsy, stone basketing - left stent placement Surgeon: Dr Marco Zarate Anesthesia: General Indications for procedure: 50-year-old male. His 3rd visit back to the emergency room with distal left ureteric stone. Had been unable to pass with medical expulsion therapy. Now with acute kidney insult creatinine 1.8. Recommend intervention with left ureteroscopy and laser lithotripsy Procedure: After informed consent was verified patient was brought to the operating placed in supine position. Anesthesia was administered per protocol. Patient was placed in modified dorsal lithotomy position and prepped and draped in a sterile fashion. Safety pause time-out and side of surgery confirmed. Antibiotics confirmed. A 22 [place] cystoscope was inserted per urethra. Bladder was normal in its entirety. Both ureteric orifices were in normal position. The left ureteric orifice was cannulated and a retrograde examination was performed. mild hydroureteronephrosis. No clear visible filling defect . A Sensor guidewire was placed up to the level of the renal pelvis under fluoroscopy. The rigid cystoscope was removed. A Jessica dilator was placed over the Sensor guidewire and used to dilate the ureteric orifice under fluoroscopy. The dilator was removed. The semi rigid ureteral scope was placed alongside the Sensor guidewire. stone was encountered in the distal portion left ureter. Using a holmium laser fiber 342 now meter. Stone was broken the small fragments. Basket was used to remove fragments. The ureter scope was removed. The wire was backloaded through a cystoscope. A 6 [place] by Twenty-six cm double-J stent was placed into the renal pelvis and bladder under a combination of fluoroscopy and direct visualization. The bladder was emptied. The patient tolerated the procedure well and was extubated in the operating room, and transferred in stable condition to the recovery area. Pathology: Stones Drains: 6 [place] by 24 cm double-J stent
--- NOTE | 2021-07-20 20:14 | PC.NURSE ---
PATIENT REPORTS NO FURTHER NAUSEA.
[2021-07-20] MEDS: Acetaminophen 325 MG TABLET 650 MG PO (21:03)
[2021-07-20] MEDS: Phenazopyridine HCL 100 MG TABLET PO (22:32)
[2021-07-21 03:46] VITALS: BP 117/72; PULSE 61; RESP 18; TEMP 36.2; O2SAT 96
--- NOTE | 2021-07-21 06:56 | HO.POSTANES ---
Post Anesthesia Evaluation Post Anesthesia Evaluation Vital Signs: Vital Signs Temp Pulse Resp BP Pulse Ox 07/21/21 03:46 97.2 F 61 18 117/72 96 07/20/21 23:26 97.4 F 72 17 123/70 96 07/20/21 21:05 97.1 F 80 16 155/87 H 96 07/20/21 20:20 89 20 135/93 H 95 07/20/21 20:05 98.3 F 85 20 96 07/20/21 19:50 83 18 137/81 95 07/20/21 19:35 83 18 139/84 98 07/20/21 19:30 82 16 132/83 100 07/20/21 19:25 82 16 131/84 100 07/20/21 19:20 97.5 F 83 17 132/63 100 Anesthesia: General Mental Status: Awake Pain Control: Satisfactory Nausea/Vomiting: None Hydration: Adequate Anesthesia-Related Issues: No Anes. Related Issues
[2021-07-21 08:00] VITALS: BP 143/95; PULSE 66; O2SAT 99
--- NOTE | 2021-07-21 08:36 | MHC.CM.PN ---
Interview conducted with [place] Interpretation. Patient lives in a house with his and he is functionally independent and working. Home/no services is the goal for dc and CM has initiated and will follow for dc planning. PCP is Dr. Felisha Bella and Patient has received Moderna vax X 3.
[2021-07-21 08:43] LABS: Anion Gap 13 (12-20); Blood Urea Nitrogen 27 mg/dL (9-16); Calcium 9.8 mg/dL (8.4-10.2); Carbon Dioxide 28 mmol/L (22-29); Chloride 105 mmol/L (96-108); Creatinine Clr Calc Pharmacy 67.2; Estimated Glomerular Filt Rate 60; Glucose Random 118 mg/dL (60-115); Potassium 4.6 mmol/L (3.3-5.1); Sodium 141 mmol/L (135-145)
--- NOTE | 2021-07-21 08:55 | P.PNUR_ITS ---
Subjective Subjective Date of Service: 07/21/21 Interval history: Significant improvement in pain and discomfort Stone removed from distal left ureter Stent placed Creatinine fell from 1.8-1.28 DC home today Physical Exam Verdana 4l Vital Signs: Verdana 4d Verdana 4d Vital Signs: Verdana 4d Verdana 4Bd Last Vital Signs Verdana 4d Cushion Former New 4d Cushion Former New 4d Temp 97.2 F 07/21/21 03:46 Cushion Former New 4d Pulse 66 07/21/21 08:00 Cushion Former New 4d Resp 18 07/21/21 03:46 BP 143/95 H 07/21/21 08:00 Pulse Ox 99 07/21/21 08:00 BMI result Body Mass Index 33.2 Const: General: cooperative, healthy appearing, comfortable and no acute distress Orientation/consciousness: patient oriented x3 HENMT: Face and sinus: Yes normal facial exam Mouth: moist mucous membranes Neck: Neck: Yes normal visual inspection, Yes full ROM and Yes trachea midline Chest: Chest palpation & inspection: normal inspection of the chest Resp: Effort & Inspection: normal respiratory effort, able to speak in complete sentences and no respiratory distress GI: Inspection: Yes normal to inspection Back/Spine/Pelvis: Cervical Spine: normal cervical lordosis Thoracic/Lumbar Spine: thoracic and lumbar spine normal to inspection Skin: General skin exam: no rashes or lesions noted Neuro: General: patient oriented x3, tone normal and moves all extremities Extrem: General: Yes normal to inspection and Yes capillary refill normal Urology Results Labs CBC & Chem 7: 07/20/21 11:37 07/21/21 08:16 Labs: Laboratory Results - last 24 hr 07/20/21 07/20/21 07/20/21 11:37 11:37 11:38 WBC 11.8 H RBC 5.02 Hgb 14.7 Hct 42.5 MCV 84.7 MCH 29.3 MCHC 34.6 RDW 11.9 Plt Count 210 MPV 10.1 Immature Gran % (Auto) 0.4 Neut % (Auto) 78.3 H Lymph % (Auto) 11.1 L Burt % (Auto) 9.6 Eos % (Auto) 0.3 Baso % (Auto) 0.3 Lymph # (Auto) 1.3 Burt # (Auto) 1.1 Eos # (Auto) 0.0 Baso # (Auto) 0.0 Abs Immat Gran (auto) 0.05 H Absolute Neuts (auto) 9.3 H Absolute Nucleated RBC 0.000 Nucleated RBC % (auto) 0.0 Sodium 139 Potassium 4.2 Chloride 104 Carbon Dioxide 27 Anion Gap 12 BUN 31 H D Creatinine 1.80 H Estim Creat Clear Calc 47.8 Estimated GFR 40 Random Glucose 105 Calcium 10.0 Total Bilirubin 0.7 AST 26 ALT 43 H Alkaline Phosphatase 66 Total Protein 7.7 Albumin 4.5 Urine Color YELLOW Urine Appearance CLEAR Urine pH 5.5 Ur Specific [place] >= 1.030 H Urine Protein TRACE Urine Glucose (UA) NEG Urine Ketones NEG Urine Blood 1+ H Urine Nitrite NEG Ur Leukocyte Esterase NEG Urine RBC 0-2 Urine WBC 0 Ur Squamous Epith Cells NONE Uric Acid Crystals 3+ Urine Bacteria NONE COVID-19 (AV) COVID-19 Sos[place] 07/20/21 07/21/21 14:20 08:16 WBC RBC Hgb Hct MCV MCH MCHC RDW Plt Count MPV Immature Gran % (Auto) Neut % (Auto) Lymph % (Auto) Burt % (Auto) Eos % (Auto) Baso % (Auto) Lymph # (Auto) Burt # (Auto) Eos # (Auto) Baso # (Auto) Abs Immat Gran (auto) Absolute Neuts (auto) Absolute Nucleated RBC Nucleated RBC % (auto) Sodium 141 Potassium 4.6 Chloride 105 Carbon Dioxide 28 Anion Gap 13 BUN 27 H Creatinine 1.28 Estim Creat Clear Calc 67.2 Estimated GFR 60 Random Glucose 118 H Calcium 9.8 Total Bilirubin AST ALT Alkaline Phosphatase Total Protein Albumin Urine Color Urine Appearance Urine pH Ur Specific [place] Urine Protein Urine Glucose (UA) Urine Ketones Urine Blood Urine Nitrite Ur Leukocyte Esterase Urine RBC Urine WBC Ur Squamous Epith Cells Uric Acid Crystals Urine Bacteria COVID-19 (AV) Negative COVID-19 Tr[facility]ertrap Com See Note Progress Note: A&P Assessment and plan (1) Left ureteral stone: Status: Acute (2) ARUN (acute kidney injury): Status: Acute Plan May DC home today Follow-up next week for stent removal Fall Risk Details Current Medications: Current Medications Fentanyl (Fentanyl Citrate/Pf 100 Mcg/2 Ml Vial) 50 mcg IVPUSH Q5M PRN; Protocol PRN Reason: Pain, Severe (Pain Scale 7-10) Hydromorphone HCl (Hydromorphone Hcl 0.5 Mg/0.5 Ml Syringe) 0.5 mg IVPUSH Q5M PRN; Protocol PRN Reason: Pain, Severe (Pain Scale 7-10) Promethazine HCl 12.5 mg/ (Sodium Chloride) 50.5 mls @ 202 mls/hr IV ONCE PRN PRN Reason: Nausea and Vomiting Oxycodone HCl (Oxycodone Hcl Immed Release 5 Mg Tablet) 10 mg PO ONCE PRN PRN Reason: Pain, Severe (Pain Scale 7-10) Tramadol HCl (Tramadol Hcl 50 Mg Tablet) 50 mg PO Q6H PRN PRN Reason: Pain, Moderate (Pain Scale 4-6 Time Spent With Patient Time: Total time spent is greater than 50% in coordination of care (as documented) at patient's floor/unit and/or counseling patient: Time with patient: less than 15 minutes
--- NOTE | 2021-07-21 08:59 | P.DS_ITS ---
DS: Providers Provider Date of Service: 07/21/21 Date of admission: 07/20/21 19:22 Date of discharge: 07/21/21 Primary care physician: Felisha Bella MD Admitting clinician: Marco Zarate Attending physician on discharge: Marco Zarate DS: Diagnosis Discharge Diagnosis (1) Left ureteral stone: Start date: 07/20/21 Status: Acute (2) ARUN (acute kidney injury): Start date: 07/20/21 Status: Acute DS: Summary Hospital Course Hospital Course: Admitted with elevated creatinine 1.8. Underwent ureteroscopy with laser lithotripsy and stent placement left side. Tolerated procedure Status at Discharge Functional status at discharge: independent ambulation Overall status at discharge: patient is back to baseline Time Spent with Patient Time attestation: Total time spent providing and/or coordinating discharge services: Discharge coordination time: Less than 30 minutes Quality: Stroke Does the patient have a stroke diagnosis?: No Physical Exam Verdana 4l Vital Signs: Verdana 4d Verdana 4d Vital Signs: Verdana 4d Verdana 4Bd Last Vital Signs Verdana 4d Automobile Service Advisor New 4d Automobile Service Advisor New 4d Temp 97.2 F 07/21/21 03:46 Automobile Service Advisor New 4d Pulse 66 07/21/21 08:00 Automobile Service Advisor New 4d Resp 18 07/21/21 03:46 BP 143/95 H 07/21/21 08:00 Pulse Ox 99 07/21/21 08:00 BMI result Body Mass Index 33.2 Const: General: cooperative, healthy appearing, comfortable and no acute distress Orientation/consciousness: patient oriented x3 HENMT: Face and sinus: Yes normal facial exam Mouth: moist mucous membranes Neck: Neck: Yes normal visual inspection, Yes full ROM and Yes trachea midline Chest: Chest palpation & inspection: normal inspection of the chest Resp: Effort & Inspection: normal respiratory effort, able to speak in complete sentences and no respiratory distress GI: Inspection: Yes normal to inspection Back/Spine/Pelvis: Cervical Spine: normal cervical lordosis Thoracic/Lumbar Spine: thoracic and lumbar spine normal to inspection Skin: General skin exam: no rashes or lesions noted Neuro: General: patient oriented x3, tone normal and moves all extremities Extrem: General: Yes normal to inspection and Yes capillary refill normal DS: Data Data Completed and Pending Completed studies during hospitalization [Text1]: imaging Pending studies at discharge: Pending at discharge 07/20/21 19:21 Surgical [PTH] Routine Labs on day of discharge: Laboratory Results - last 24 hr 07/20/21 07/20/21 07/20/21 11:37 11:37 11:38 WBC 11.8 H RBC 5.02 Hgb 14.7 Hct 42.5 MCV 84.7 MCH 29.3 MCHC 34.6 RDW 11.9 Plt Count 210 MPV 10.1 Immature Gran % (Auto) 0.4 Neut % (Auto) 78.3 H Lymph % (Auto) 11.1 L [place] % (Auto) 9.6 Eos % (Auto) 0.3 Baso % (Auto) 0.3 Lymph # (Auto) 1.3 [place] # (Auto) 1.1 Eos # (Auto) 0.0 Baso # (Auto) 0.0 Abs Immat Gran (auto) 0.05 H Absolute Neuts (auto) 9.3 H Absolute Nucleated RBC 0.000 Nucleated RBC % (auto) 0.0 Sodium 139 Potassium 4.2 Chloride 104 Carbon Dioxide 27 Anion Gap 12 BUN 31 H D Creatinine 1.80 H Estim Creat Clear Calc 47.8 Estimated GFR 40 Random Glucose 105 Calcium 10.0 Total Bilirubin 0.7 AST 26 ALT 43 H Alkaline Phosphatase 66 Total Protein 7.7 Albumin 4.5 Urine Color YELLOW Urine Appearance CLEAR Urine pH 5.5 Ur Specific [place] >= 1.030 H Urine Protein TRACE Urine Glucose (UA) NEG Urine Ketones NEG Urine Blood 1+ H Urine Nitrite NEG Ur Leukocyte Esterase NEG Urine RBC 0-2 Urine WBC 0 Ur Squamous Epith Cells NONE Uric Acid Crystals 3+ Urine Bacteria NONE COVID-19 (AV) COVID-19 Clin Com 07/20/21 07/21/21 14:20 08:16 WBC RBC Hgb Hct MCV MCH MCHC RDW Plt Count MPV Immature Gran % (Auto) Neut % (Auto) Lymph % (Auto) [place] % (Auto) Eos % (Auto) Baso % (Auto) Lymph # (Auto) [place] # (Auto) Eos # (Auto) Baso # (Auto) Abs Immat Gran (auto) Absolute Neuts (auto) Absolute Nucleated RBC Nucleated RBC % (auto) Sodium 141 Potassium 4.6 Chloride 105 Carbon Dioxide 28 Anion Gap 13 BUN 27 H Creatinine 1.28 Estim Creat Clear Calc 67.2 Estimated GFR 60 Random Glucose 118 H Calcium 9.8 Total Bilirubin AST ALT Alkaline Phosphatase Total Protein Albumin Urine Color Urine Appearance Urine pH Ur Specific [place] Urine Protein Urine Glucose (UA) Urine Ketones Urine Blood Urine Nitrite Ur Leukocyte Esterase Urine RBC Urine WBC Ur Squamous Epith Cells Uric Acid Crystals Urine Bacteria COVID-19 (AV) Negative COVID-19 Clin Com See Note Imaging CT scan - abdomen: Radiologist's impression: ITS Impressions Retroperitoneum Ultrasound 07/20/21 14:37 IMPRESSION: Nonobstructive echogenic calculi upper and midpole right kidney. There is mild pelvic fullness in the left kidney. Bilateral ureteral jets are seen in the bladder. Minimal echogenic debris in dependent bladder. KUB X-Ray 07/20/21 15:06 IMPRESSION: Moderate volume of stool in colon. Nonobstructive bowel pattern. Discharge Plan Discharge Patient Disposition: Home, Self-Care Discharge Diagnosis: left distal ureteric stone Referrals: Felisha Bella MD [Primary Care Provider] - None Marco Zarate MD [Physician] - 1 Week Discharge Medications: Continued tamsulosin [Flomax] 0.4 mg capsule 0.4 mg PO BEDTIME Qty: 10 0RF prednisone 20 mg tablet 20 mg PO DAILY Qty: 5 0RF morphine 15 mg tablet 15 mg PO Q4-6H PRN (Reason: pain) Qty: 14 0RF Rx Instructions: Patient may request partial fill acetaminophen 500 mg Tablet 500 mg PO Q6H PRN (Reason: Pain) 0RF naproxen [Naprosyn] 500 mg tablet 500 mg PO BID PRN (Reason: Pain) 0RF Discharge Orders: Discharge Order (Routine); Ordered 07/21/21 Ordered By: Marco Zarate Diet: regular diet Activity on Discharge: As tolerated Stand Alone Forms: Patient Portal Discharge page Print Language: Maltese Care Plan Goals: Nephrolithiasis Health Concerns: Nephrolithiasis Plan of Treatment: Nephrolithiasis Assessment: Nephrolithiasis
--- NOTE | 2021-07-21 09:17 | MHC.CM.PN ---
Patient has been medically cleared for dc to home today, no services.
[2021-07-25 02:52] LABS: Stone Source KIDNEY STONE
== END 2021-07-21 12:20 | disposition home or self-care (01) | DRG 446 ==
LOC: HO.ED 16:46 → HO.EDOVER 19:32 → HO.S3 20:21
PROVIDERS: Admitting Provider Urology; Emergency Provider Emergency Medicine; PCP Internal Medicine; Visit Provider Urology
PROC: 0TC78ZZ Extirpation of Matter from Left Ureter, Via Natural or Artificial Opening Endoscopic (ICD-10-PCS; principal; 2021-07-20 17:30)
DX: N13.2 Hydronephrosis with renal and ureteral calculous obstruction (principal); N17.9 Acute kidney failure, unspecified; Z20.822 Contact with and (suspected) exposure to COVID-19; Z79.899 Other long term (current) drug therapy
CPT/HCPCS: 36415; 74018; 76770; 80048; 80053; 81001; 82365; 85025; 87086; 87635; 88300; 96361; 96374; 96375; 99285; 99291; C1758; C1769; C2617; J1100; J1170; J1956; J2405; J3010; Q9967

== ENCOUNTER → 2021-08-03 09:54 | Outpatient (BNVA) | payer MEDICAID, SELFPAY | PROVIDERS: PCP Internal Medicine; Visit Provider Urology | DX: Z48.816 Encounter for surgical aftercare following surgery on the genitourinary system (principal); Z87.442 Personal history of urinary calculi | CPT/HCPCS: 52310; 99212 ==

== ENCOUNTER 2021-08-24 10:33 | Outpatient (REF) | payer MEDICAID, SELFPAY ==
--- NOTE | ~2021-08-24 | US_ITS ---
EXAMINATION: US RETROPERITONEAL LIMITED (RENAL ONLY) CLINICAL INFORMATION: Calculus of kidney. COMPARISON: X-ray abdomen KUB 07/20/2021. Ultrasound kidneys and bladder 07/20/2021. CT abdomen and pelvis 07/16/2021. TECHNIQUE: Real-time imaging of the kidneys. FINDINGS: RIGHT KIDNEY: 12.0 x 5.5 x 6.3 cm (SAG x AP x TRV). The kidney is normal in size, contour, and echogenicity. Renal cortical thickness is normal. No focal parenchymal lesions or hydronephrosis. There is a 0.3 cm nonobstructing lower pole shadowing calcification. LEFT KIDNEY: 12.3 x 5.5 x 4.9 cm (SAG x AP x TRV). The kidney is normal in size, contour, and echogenicity. Renal cortical thickness is normal. No calculi or focal parenchymal lesions. No hydronephrosis. US/US renal BI IMPRESSION: 1. There is a 0.3 cm nonobstructing lower pole right renal calculus.
== END 2021-08-24 10:34 | disposition home or self-care (01) ==
LOC: HO.HMGCX 10:33
PROVIDERS: PCP Internal Medicine; Visit Provider Urology
DX: N20.0 Calculus of kidney (principal)
CPT/HCPCS: 76775

== ENCOUNTER → 2021-10-15 14:03 | Outpatient (BNVA) | payer MEDICAID, SELFPAY | PROVIDERS: PCP Internal Medicine; Visit Provider Urology | DX: N20.0 Calculus of kidney (principal) | CPT/HCPCS: 99212 ==

== ENCOUNTER 2022-04-11 08:14 | Outpatient (REF) | payer MEDICAID, SELFPAY ==
--- NOTE | ~2022-04-11 | US_ITS ---
EXAMINATION: US RETROPERITONEAL LIMITED (RENAL ONLY) CLINICAL INFORMATION: Calculus of kidney. COMPARISON: Ultrasound retroperitoneal limited (renal only) 08/24/2021. TECHNIQUE: Real-time imaging of the kidneys. FINDINGS: RIGHT KIDNEY: 10.8 x 5.4 x 5.5 cm (SAG x AP x TRV). The kidney is normal in size, contour, and echogenicity. Renal cortical thickness is normal. No focal parenchymal lesions or hydronephrosis. 3 mm echogenic, shadowing right lower pole calculus. LEFT KIDNEY: 11.8 x 5.5 x 5.6 cm (SAG x AP x TRV). The kidney is normal in size, contour, and echogenicity. Renal cortical thickness is normal. No calculi or focal parenchymal lesions. No hydronephrosis. US/US renal BI IMPRESSION: 3 mm right lower pole renal calculus.
== END 2022-04-11 08:15 | disposition home or self-care (01) ==
LOC: HO.HMGCX 08:14
PROVIDERS: PCP Internal Medicine; Visit Provider Urology
DX: N20.0 Calculus of kidney (principal)
CPT/HCPCS: 76775